=== PATIENT | female | born 1965 | race Caucasian/White ===

== ENCOUNTER 2018-05-09 16:08 | Outpatient (CLI) | payer BC, SELFPAY ==
--- NOTE | 2018-05-09 15:35 | DI.RAD_ITS ---
SYMPTOMS/DIAGNOSIS: LEFT FINGER PAIN, M79.645 LEFT INDEX FINGER: There is no evidence of fracture, dislocation or bony erosions. There are no significant degenerative changes. No soft tissue calcifications are seen. IMPRESSION: Negative left index finger.
== END 2018-05-09 16:28 ==
PROVIDERS: PCP Family Medicine; Visit Provider Family Medicine
DX: M79.645 Pain in left finger(s) (principal)
CPT/HCPCS: 73140

== ENCOUNTER 2018-07-17 18:08 | Outpatient (REF) | payer BC, SELFPAY ==
[2018-07-17 19:22] LABS: HCT 37.4 % (36.0-46.0); HGB 12.6 g/dL (12.0-15.5); Mean Corp. HGB Concentration 33.7 g/dL (32.0-36.0); Mean Corpuscular Hemoglobin 31.7 pg (27.0-33.0); Mean Platelet Volume 9.7 fL (8.0-11.0); Platelet Count 380 x1000/uL (130-400); RBC 3.98 m/cumm (4.00-5.20); RBC Distribution Width 11.5 % (11.7-14.6); White Blood Cell Count 6.17 k/cumm (4.4-10.8)
[2018-07-17 20:58] LABS: Mono Screening Negative (Negative)
== END 2018-07-17 18:28 ==
LOC: NCHCN 18:08
PROVIDERS: PCP Family Medicine; Visit Provider Family Medicine
DX: J02.9 Acute pharyngitis, unspecified (principal)
CPT/HCPCS: 85027; 86308

== ENCOUNTER 2018-10-18 16:15 | Outpatient (REF) | payer BC, SELFPAY ==
--- NOTE | 2018-10-18 13:50 | PAPFT_PTH ---
PATIENT: Cindi Brandon LOC: [facility] U#:[id number] AGE/SX: 53/F ROOM: RE10/18/[address]: MONIQUE Xie : 1965 BED: DIS: 10/18/2018 SPEC #: [id number] RECD: 10/18/18 18:00 STATUS: MAHI MUNOZ #: [id number] FABIOLA: 10/18/18 13:[address]: Jacklyn Masters [facility] Cytology RECD BY: Mary Jimenez ENTERED: 10/18/18 18:00 SP TYPE: PAPFT ANEUDY DR: Jordyn Mosquera Tissues: 1 - CX/ENDOCX FOR PAP SMEARS Procedures: PAP THIN PREP/UVM Screening HPV DNA PROBE Comments: [id number]
== END 2018-10-18 16:35 ==
LOC: LBN 16:15
PROVIDERS: Visit Provider Nurse Practitioner Family
DX: Z12.4 Encounter for screening for malignant neoplasm of cervix (principal); Z11.51 Encounter for screening for human papillomavirus (HPV)
CPT/HCPCS: 88142; 87624

== ENCOUNTER 2019-12-30 01:54 | Outpatient (CLI) | payer BC, SELFPAY ==
--- NOTE | 2019-12-30 12:00 | DI.MAMMO_ITS ---
EXAM: MAMMO SCREENING CLINICAL HISTORY: screening TECHNIQUE: Mammograms were interpreted according to the usual protocol including computer analysis w Dekko CAD system, tomosynthesis and C-view imaging. COMPARISON: 2011 and 2013 FINDINGS: The breasts are composed of heterogeneously dense fibroglandular densities, Breast Density category C . No suspicious masses or suspicious microcalcifications are seen. Benign calcifications are again not ed in the lateral left breast. No skin thickening or abnormal axillary lymph nodes are seen. There has been no significant change from prior exams. IMPRESSION: BI-RADS Category 2 - Benign Findings Yearly screening mammography is recommended. Breast Density - Category C, heterogeneously dense tissue which decreases the sensitivity of the mamm ogram. The mammogram demonstrates the patient's breast tissue is dense. Dense breast tissue is very common a nd is not abnormal but dense breast tissue can make it harder to find cancer on a mammogram. Also, de nse breast tissue may increase breast cancer risk. This information about the result of the mammogram report was provided to the patient to raise their awareness. Use this report when you speak with the patient about their risks for breast cancer, which includes their family history. At that time, you may recommend additional screening tests (Ultrasound or MRI) as they might be useful based on their r isk. A negative radiographic report should not delay biopsy if a dominant or clinically suspicious mass is present. Up to ten percent of cancers are not identified on mammography. A negative report may reinforce clinical impression. Adenosis and dense breasts may obscure an underlying neoplasm. False positive reports average 6 to 10%.
== END 2019-12-30 02:14 ==
PROVIDERS: PCP Family Medicine; Visit Provider Nurse Practitioner Family
DX: Z12.31 Encounter for screening mammogram for malignant neoplasm of breast (principal); R92.2 Inconclusive mammogram
CPT/HCPCS: 77063; 77067

== ENCOUNTER 2021-12-31 18:29 | Outpatient (REF) | payer MEDICAID, SELFPAY ==
[2022-01-02 11:33] LABS: COVID-19 RT-PCR UVMMC Result Negative (Negative)
== END 2021-12-31 18:30 | disposition home or self-care (01) ==
LOC: LBN 18:29
PROVIDERS: PCP Family Medicine; Visit Provider Physician Assistant Medical
DX: Z20.822 Contact with and (suspected) exposure to COVID-19 (principal)
CPT/HCPCS: U0003

== ENCOUNTER 2022-01-19 11:48 | Outpatient (REF) | payer MEDICAID, SELFPAY ==
--- NOTE | 2022-01-19 11:15 | PAPFT_PTH ---
PATIENT: Cindi Brandon LOC: [facility] U#:[id number] AGE/SX: 56/F ROOM: RE01/19/[address]: Arianna Montes De Oca NP : 1965 BED: DIS: 01/19/2022 SPEC #: [id number] RECD: 01/19/22 13:14 STATUS: MAHI RESamantha #: [id number] FABIOLA: 01/19/22 11:[address]: Arianna Montes De Oca NP DEPT: [facility] Cytology RECD BY: Mary Jimenez ENTERED: 01/19/22 13:14 SP TYPE: PAPFT OTHR DR: Getachew Martínez Tissues: 1 - CX/ENDOCX FOR PAP SMEARS Procedures: PAP THIN PREP/UVM Screening HPV DNA PROBE Comments: [id number] (CHLAMYDIA/GC)
[2022-01-20 14:05] LABS: Chlamydia Result Negative (Negative); GC Result Negative (Negative)
== END 2022-01-19 11:49 | disposition home or self-care (01) ==
LOC: LBN 11:48
PROVIDERS: PCP Family Medicine; Visit Provider Nurse Practitioner Women's Health
DX: Z12.4 Encounter for screening for malignant neoplasm of cervix (principal); Z11.51 Encounter for screening for human papillomavirus (HPV); Z11.3 Encounter for screening for infections with a predominantly sexual mode of transmission
CPT/HCPCS: 87491; 87591; 88142; 87624

== ENCOUNTER → 2022-02-23 01:23 | Outpatient (CLI) | payer MEDICAID, SELFPAY ==
--- NOTE | 2022-02-23 16:00 | DI.MAMMO_ITS ---
Exam(s) MAMMO SCREENING EXAM: MAMMO SCREENING CLINICAL HISTORY: screening TECHNIQUE: Bilateral full field digital CC and MLO mammographic images were obtained with 3D tomosyn thesis and utilizing computer aided detection (CAD). COMPARISON: Available for comparison. FINDINGS: Masses/Architectural Distortion: None seen. Microcalcifications: No suspicious pleomorphic-type are seen. Skin Thickening/Nipple Retraction: None. IMPRESSION: 1. No significant interval change with no specific features of malignancy noted. 2. Unless there is more urgent need, screening mammography is recommended, as per [employer] guidelines. BI-RADS Category 1 - Negative Breast Density - Category C - Heterogeneously dense Breast density category C or D implies that the patient has dense breast tissue. Dense breast tissue is very common and is not abnormal but dense breast tissue can make it harder to find cancer on a ma mmogram. Also, dense breast tissue may increase their breast cancer risk. This information about the result of the mammogram report was provided to the patient to raise their awareness. Use this report when you speak with the patient about their risks for breast cancer, which includes their family hist ory. At that time, you may recommend for more screening tests (Ultrasound or MRI) as they might be us eful based on their risk. A negative radiographic report should not delay biopsy if a dominant or clinically suspicious mass is present. Up to ten percent of cancers are not identified on mammography. A negative report may reinforce clinical impression. Adenosis and dense breasts may obscure an underlying neoplasm. False positive reports average 6 to 10%. Patient will receive a letter notifying them of these results.
== END ==
PROVIDERS: PCP Family Medicine; Visit Provider Nurse Practitioner Women's Health
DX: Z12.31 Encounter for screening mammogram for malignant neoplasm of breast (principal)
CPT/HCPCS: 77063; 77067

== ENCOUNTER 2022-03-30 12:21 | Outpatient (REF) | payer MEDICAID, SELFPAY ==
[2022-03-30 19:17] LABS: Abs Immature Grans 0.01 10^3/uL (0.0-0.06); Absolute Basophil Count 0.03 10^3/uL (0.0-0.2); Absolute Eosinophil Count 0.21 10^3/uL (0.0-0.7); Absolute Lymphocyte Count 1.58 10^3/uL (1.2-3.4); Absolute Monocyte Count 0.61 10^3/uL (0.1-0.8); Absolute Neutrophil Count 3.58 10^3/uL (1.2-6.7); Basophils % 0.5; Eosinophils % 3.5; HCT 41.5 % (36.0-46.0); HGB 13.9 g/dL (11.2-15.7); Immature Grans % 0.2; Lymphocytes % 26.2; MCH 31.7 pg (27.0-33.0); MCHC 33.5 % (32.0-36.0); MCV 95 fL (80-95); MPV 9.8 fL (8.0-11.0); Monocytes % 10.1; Neutrophils % 59.5; Platelet Count 327 10^3/uL (130-400); RBC 4.39 10^6/uL (3.93-5.22); RDW-SD 42.1 fL; WBC 6.02 10^3/uL (4.4-10.8)
[2022-03-30 19:26] LABS: ALT 35 U/L (14-59); AST 32 U/L (15-37); Albumin 4.1 g/dL (3.4-5.0); Alkaline Phosphatase 66 U/L (46-116); Anion Gap 5.9 mmol/L (3-11); BUN 14 mg/dL (7-18); Bilirubin, Total 0.5 mg/dL (0.2-1.0); CO2 30.1 mmol/L (21.0-32.0); CREATININE 0.7 mg/dL (0.55-1.02); Calcium 9.4 mg/dL (8.5-10.1); Calculated LDL 105 mg/dL (<100); Chloride 104 mmol/L (98-107); Cholesterol 245 mg/dL (<200); Estimated GFR 101.44 (mL/min/1.73m2); Glucose 103 mg/dL (74-106); HDL Cholesterol 121 mg/dL (40-60); Potassium 4.6 mmol/L (3.5-5.1); Sodium 140 mmol/L (136-145); Total Protein 7.5 g/dL (6.4-8.2); Triglyceride 96 mg/dL (<150)
== END 2022-03-30 12:22 | disposition home or self-care (01) ==
LOC: NCHCN 12:21
PROVIDERS: PCP Family Medicine; Visit Provider Nurse Practitioner Family
DX: R53.83 Other fatigue (principal); R63.4 Abnormal weight loss; E78.89 Other lipoprotein metabolism disorders
CPT/HCPCS: 80053; 80061; 85025

== ENCOUNTER 2022-03-31 01:18 | Outpatient (CLI) | payer MEDICAID, SELFPAY ==
--- NOTE | 2022-03-31 13:40 | DI.RAD_ITS ---
Exam(s) XR THUMB LT EXAM: XR THUMB LT . CLINICAL HISTORY: LT THUMB PAIN, M79.645. TECHNIQUE: 2D digital imaging was performed. COMPARISON: CR RIGHT HAND COMPLETE from 10/02/2008 FINDINGS: 4 views There isno evidence of fracture or dislocation. No radiopaque foreign body. No osseous lesions nor er osions. First carpometacarpal joint is unremarkable Incidentally noted are small sub millimeter calcific densities in both sides of the DIP joint of the 3rd-middle finger. IMPRESSION: DATA REPOSITORY: RADIATION DOSE DELIVERED:
== END 2022-03-31 01:38 ==
LOC: DI 01:18
PROVIDERS: PCP Family Medicine; Visit Provider Nurse Practitioner Family
DX: M79.645 Pain in left finger(s) (principal)
CPT/HCPCS: 73140

== ENCOUNTER 2022-05-09 01:13 | Outpatient (CLI) | payer MEDICAID, SELFPAY ==
--- NOTE | 2022-05-09 17:50 | DI.DEXA_ITS ---
Exam(s) XR DEXA BONE DENSITY W/WO ADENIKE EXAM: XR DEXA BONE DENSITY W/WO ADENIKE CLINICAL HISTORY: SCREENING FOR OSTEOPOROSIS IN POSTMENOPAUSAL WOMAN,Z78.0 TECHNIQUE: Routine DEXA evaluation of the lumbar spine, hip, or forearm. COMPARISON: Prior DEXA scan performed 2013 FINDINGS: Performed on a [employer] unit. Lumbar Spine total T-score: Not performed due to prior surgery Hip total T-score:-1.2. Prior reading in 2014 was -0.3 Independent reading at the level of the femoral neck yields T-score of -1.3 Forearm total T-score: -0.1 IMPRESSION: Bone mineral density measures in the osteopenia range. Fracture risk is moderate. Note: Any spine fracture indicates 5x risk for subsequent spine fracture and 2x risk for subsequent h ip fracture. World Health Organization criteria for BMD interpretation classify patients: Normal...... T- Score at or above -1.0 Osteopenic... T- Score between -1.0 and -2.5 Osteoporosis... T-Score at or below -2.5
== END 2022-05-09 01:33 ==
LOC: DI 01:14
PROVIDERS: PCP Family Medicine; Visit Provider Nurse Practitioner Family
DX: Z13.820 Encounter for screening for osteoporosis (principal); Z78.0 Asymptomatic menopausal state; M85.88 Other specified disorders of bone density and structure, other site
CPT/HCPCS: 77080

== ENCOUNTER 2022-09-29 12:11 | Outpatient (REF) | payer MEDICAID, SELFPAY ==
[2022-09-29 15:15] LABS: Abs Immature Grans 0.01 10^3/uL (0.0-0.06); Absolute Basophil Count 0.04 10^3/uL (0.0-0.2); Absolute Eosinophil Count 0.12 10^3/uL (0.0-0.7); Absolute Lymphocyte Count 1.72 10^3/uL (1.2-3.4); Absolute Monocyte Count 0.62 10^3/uL (0.1-0.8); Absolute Neutrophil Count 2.97 10^3/uL (1.2-6.7); Basophils % 0.7; Eosinophils % 2.2; HCT 40.5 % (36.0-46.0); HGB 13.7 g/dL (11.2-15.7); Immature Grans % 0.2; Lymphocytes % 31.4; MCH 31.6 pg (27.0-33.0); MCHC 33.8 % (32.0-36.0); MCV 93 fL (80-95); MPV 9.4 fL (8.0-11.0); Monocytes % 11.3; Neutrophils % 54.2; Platelet Count 321 10^3/uL (130-400); RBC 4.34 10^6/uL (3.93-5.22); RDW 11.8 % (11.7-14.6); RDW-SD 40.4 fL; WBC 5.48 10^3/uL (4.4-10.8)
[2022-09-29 15:17] LABS: Bilirubin Negative (Negative); Blood Moderate (Negative); Clarity Clear (Clear); Glucose Negative (Negative); Ketones Negative (Negative); Leukocyte Esterase Negative (Negative); Nitrite Negative (Negative); Urobilinogen 0.2 mg/dL (Up to 0.2); pH 6.5 (5-8)
[2022-09-29 15:26] LABS: Bacteria Negative HPF (Negative); C & S Indicated? No; Casts Negative LPF (Negative); Crystals Negative HPF (Negative); Epithelial Cells Few HPF (Negative); Mucus Negative (Negative); WBC 0-2 HPF (0-5)
[2022-09-29 15:40] LABS: ALT 97 U/L (14-59); AST 70 U/L (15-37); Albumin 4.2 g/dL (3.4-5.0); Alkaline Phosphatase 70 U/L (46-116); Anion Gap 9.6 mmol/L (3-11); BUN 20 mg/dL (7-18); Bilirubin, Total 0.7 mg/dL (0.2-1.0); CO2 28.4 mmol/L (21.0-32.0); CREATININE 0.8 mg/dL (0.55-1.02); Calcium 9.4 mg/dL (8.5-10.1); Chloride 101 mmol/L (98-107); Estimated GFR 85.89 (mL/min/1.73m2); FREE T4 0.82 ng/dL (0.76-1.46); Glucose 99 mg/dL (74-106); Potassium 4.1 mmol/L (3.5-5.1); Sodium 139 mmol/L (136-145); TSH 0.95 uIU/mL (0.36-3.74); Total Protein 7.5 g/dL (6.4-8.2)
[2022-09-29 22:50] LABS: T3, Total 122 ng/dL (97-169)
== END 2022-09-29 12:12 | disposition home or self-care (01) ==
LOC: NCHCN 12:11
PROVIDERS: PCP Family Medicine; Visit Provider Nurse Practitioner Family
DX: R63.4 Abnormal weight loss (principal)
CPT/HCPCS: 80053; 81003; 81015; 84439; 84443; 84480; 85025

== ENCOUNTER 2022-09-30 00:17 | Outpatient (CLI) | payer MEDICAID, SELFPAY ==
--- NOTE | 2022-09-30 | DI.US_ITS ---
Exam(s) US ABDOMEN LIMITED EXAM: US ABDOMEN LIMITED CLINICAL HISTORY: RUQ PAIN, R10.11, RECENT WT LOSS, R63.4 TECHNIQUE: Ultrasound abdomen performed using standard protocol. COMPARISON: US RENAL ULTRASOUND(P) from 07/09/2013 FINDINGS: LIVER: Normal size and echogenicity. No focal liver lesions are seen.. GALLBLADDER: No evidence of cholelithiasis. No evidence of wall thickening. No pericholecystic fluid identified. SANCHEZ'S SIGN: Negative. BILIARY SYSTEM: No intrahepatic biliary ductal dilation. The distal common bile duct appears dilated to 8 millimeters. No common duct stone visible. Right KIDNEY: Normal size. No evidence of renal calculi. No evidence of hydronephrosis. No renal mas s or cyst identified. PANCREAS: Not well visualized due to overlying bowel gas. ABDOMINAL AORTA AND IVC: Visualized portions normal caliber. ASCITES: None seen. IMPRESSION: Mild distal dilatation of the common bile duct without visible stone. No evidence of gallstones or g allbladder wall thickening. DATA REPOSITORY:
== END 2022-09-30 00:37 ==
PROVIDERS: PCP Family Medicine; Visit Provider Nurse Practitioner Family
DX: R93.2 Abnormal findings on diagnostic imaging of liver and biliary tract (principal); R10.9 Unspecified abdominal pain
CPT/HCPCS: 76705

== ENCOUNTER → 2023-06-22 11:41 | Outpatient (CLI) | payer MEDICAID, SELFPAY ==
--- NOTE | 2023-06-22 14:24 | DI.RAD_ITS ---
Exam(s) XR SACRUM COCCYX EXAM: XR SACRUM COCCYX CLINICAL HISTORY: PAIN IN COCCYX,SACROCOCCYGEAL DISORDER, M53.3,H/O TRAUMA. TECHNIQUE: 2D digital imaging was performed. COMPARISON: CR XR DEXA BONE DENSITY W/WO ADENIKE from 05/09/2022 FINDINGS: BONES: No acute fracture is present. No bony destructive lesion is seen. Rods are noted in the lowe r lumbar spine and upper sacrum. JOINTS: SI joints and pubic symphysis are unremarkable. The visualized portions of the hip joints ar e maintained. SOFT TISSUE: Normal. IMPRESSION: No acute abnormality. DATA REPOSITORY: RADIATION DOSE DELIVERED:
== END ==
PROVIDERS: PCP Family Medicine; Visit Provider Family Medicine
DX: M53.3 Sacrococcygeal disorders, not elsewhere classified (principal)
CPT/HCPCS: 72220

== ENCOUNTER → 2023-08-04 02:39 | Outpatient (CLI) | payer MEDICAID, SELFPAY ==
--- NOTE | 2023-08-04 15:00 | DI.RAD_ITS ---
Exam(s) XR SCOLIOSIS T-L SPINE EXAM: XR SCOLIOSIS T-L SPINE CLINICAL HISTORY: SCOLIOSIS. TECHNIQUE: 2D digital imaging was performed. COMPARISON: CR XR SACRUM COCCYX from 06/22/2023 FINDINGS: Seven views. There is a long Caban girma extending from posterior T2 level down to L3 level. Coming off of this broad are 2 accessory loops of rods which extend from T11 on the right side and T1 2 on the left side down into the pelvis where there are secured by posterior intrapedicular screws in the lumbar vertebrae as well as oblique screws in the sacrum and across the SI joints. It is noted that there is a discontinuity-fracture of 1 of the 2 left-sided rods at the L5 level. With respect to the scoliosis, it is convex right throughout its length. The Michael angle today is mary ured off of the inferior endplate of T2 and superior endplate of L3. This describes an angle of appro ximately 49 degrees. A Michael angle measurement using the superior endplate of T3 and inferior endplate of L1 describes an a ngle approximately 44 degrees IMPRESSION: Michael angle measurements as above for the thoracolumbar scoliosis which is convex right. There is a fracture line through the lower aspect of the more medial of the 2 rods at the L5 level. DATA REPOSITORY: RADIATION DOSE DELIVERED: It is convex right throughout its length. The Michael angle
== END ==
PROVIDERS: PCP Family Medicine; Visit Provider Orthopaedic Surgery Orthopaedic Surgery of the Spine
DX: M51.35 Other intervertebral disc degeneration, thoracolumbar region (principal)
CPT/HCPCS: 72082

== ENCOUNTER 2024-04-30 14:06 | Outpatient (REF) | payer MEDICAID, SELFPAY ==
--- OUTSIDE RECORDS SUMMARY | 2024-04-30 14:17 | XMS_ITS | Encounter Summary ---
Author Organization [facility] Address [address] [place] [id number] Care Team Providers Care Repairer [employer] Equipment Name Role Phone Unknown, Provider Primary Care Provider Unava ilable Encounter Details Date Type Department Care Team (Late st Contact Info) Description 09/29/2022 Lab Requisition [facility] Pathology & Laboratory Medicine - [address] [id number] Outr Resulting Lab, Provider Social History Tobacco Use Types Packs/Day Years Used Date Smoking Tobacco: Never Assessed Comments Unknown Sex and Gender Information Value Date Recorded Sex Assigned at Not on file Legal Sex Female 17:57 EST Gender Identity Not on file Sexual Orientation Not on file documented as of this encounter Plan of Treatment Not on file documented as of this encounter Procedures Procedure Name Priority Date/Time Associated Diagnosis Comments T3, TOTAL Routine 09/29/2022 11:50 EDT documented in this encounter Results * T3, TOTAL (09/29/2022 11:50 EDT) T3, Total 122 97 - 169 ng/dL 09/29/2022 22:45 EDT [facility] Blood VENOUS BLOOD / Unknown 09/29/2022 11:50 EDT 09/29/2022 21:47 EDT us Provider Outr Resulting Lab CHEMISTRY & BLOOD GA S ORDERABLES Final Result [facility] [address] [place] [address] documented in this encounter Visit Diagnoses Not on filedocumented in this encounter Care Teams Repairer [employer]ding Systems [employer] Equipment Relationship Specialty Start Date End Date Unknown, Provider, PCP - General 07/20/12 documented as of this encounter
--- OUTSIDE RECORDS SUMMARY | 2024-04-30 14:17 | XMS_ITS | Clinical Summary ---
Author Organization [facility] [address] Care Team Providers Care Hospital Staff Pharmacist Name Role Phone None Primary Care Provider Unavailabl e Allergies No known active allergies Medications Medication Sig Dispensed Refills Start Date End Date Status ETONOGESTREL/ETHINYL ESTRADIOL (NUVARING VAGL) 09/09/2008 Active NAPROXEN SODIUM (ALEVE ORAL) 09/09/2008 Active CALCIUM ORAL 09/09/2008 Active LYCOPENE/LUT XT/FRUIT EXTRACTS (FRUIT & VEGETABLE DAILY ORAL) 09/09/2008 Active multivitamin with minerals (JENNIFER MULTIPLE/CHELATED MINERAL) tablet 09/09/2008 Active Social History Tobacco Use Types Packs/Day Years Used Date Smoking Tobacco: Never Assessed Sex and Gender Information Value Date Recorded Sex Assigned at Not on file Gender Identity Not on file Sexual Orientation Not on file Plan of Treatment Health Maintenance Due Date Last Done Comments CT Colonography 1965 Colonoscopy 1965 Colorectal Cancer Screening 1965 FIT DNA 1965 FIT 1965 Sigmoidoscopy (10 year) with FIT yearly 1965 Sigmoidoscopy 1965 HIV screen 1983 Hepatitis C Screening 1983 Hepatitis B vaccine (0-59 yrs) (1) 1984 Tetanus/Diphtheria/Pertussis Vaccines (1 - Tdap) 05/12 HPV test 1995 PAP Smear 1995 Breast Cancer Share Decision Needed 2005 Breast Cancer screening 2005 Pneumoccocal Vaccine: 50+ (1 of 1 - PCV) 2015 Zoster vaccine (1 of 2) 2015 Advance Directive 2020 Covid-19 Vaccine (1 - 2023-25 season) 2023 Influenza (Flu) vaccine (1 o f 1 - Influenza standard series) 12/03/2023 Care Teams Hospital Staff Pharmacist Relationship Specialty Start Date End Date None None PCP - General 02/23/10
--- OUTSIDE RECORDS SUMMARY | 2024-04-30 14:17 | XMS_ITS | Referral Summary ---
Author Organization [facility] Address [address] [place] [address] Care Team Providers Care Oreman Name Role Phone Unknown, Provider Primary Care Provider Unava ilable Social History Tobacco Use Types Packs/Day Years Used Date Smoking Tobacco: Never Assessed Comments Unknown Sex and Gender Information Value Date Recorded Sex Assigned at Not on file Legal Sex Female 17:57 EST Gender Identity Not on file Sexual Orientation Not on file Plan of Treatment Not on file Care Teams [place] Relationship Specialty Start Date End Date Unknown, ProviderMD PCP - General 07/20/12
--- OUTSIDE RECORDS SUMMARY | 2024-04-30 14:17 | XMS_ITS | Patient Health Record ---
Author Organization [facility] Address [address] [place] [address] Care Team Providers Care Semiconductor Packages Leak Tester Name Role Phone OTHER PHYSICIANS, OTH Primary Care Provider Shanta Isrrael Waterman Unavailable [phone] REASON FOR REFERRAL No Information MEDICATIONS Medication SIG (Take, Route, Frequency, Duration) Notes Start Date End Date Status Multivitamin - 1 tablet Orally Once a day for 30 day(s) Active Calcium Magnesium 750 300-300 MG 1 tablet with meals Orally Three times a day for 30 day(s) Active Acetaminophen 325 MG 1 capsule as needed Orally every 6 hrs Not-Taking Omeprazole 20 MG 1 capsule 30 minutes before morning meal Orally Once a day for 30 day(s) Not-Taking SOCIAL HISTORY Tobacco Use: Social History Observation Description Date Details (start date - stop date) Never Smoker NA - NA Sex Assigned At : Social History Observation Description Sex Assigned At Unknown SMOKING Question Answer Notes Are you a: nonsmoker PROBLEMS Problem Type ICD Code Onset Dates Problem Status W/U Status Risk SNOMED Code Notes Problem Hyperkeratosis (L85.9) Active confirmed Hyperkeratosis (71031182) Problem GERD (gastroesophageal reflux disease) (K21.9) Active confirmed Gastroesophagea l reflux disease (736841044) Problem Knee pain, right (M25.561) Active confirmed Problem Finger pain, left (M79.645) Active confirmed Pain in limb (04587057) Problem Other form of scoliosis of thoracolumbar spine (M41.85) Active confirmed PLAN OF TREATMENT No Information Insurance Providers Payer Name Payer Address Payer Phone Subscriber Number Group Number Insured Name Patient Relationship to Insured Coverage Start Date Coverage End Date [employer] [address] [place] [address] [id number] BJ XAVIER Spouse - patient is the spouse of the insured [place] [address] [id number] DANIEL XAVIER Self - [place] [address] DANIEL XAVIER Self - patient is the insured MEDICAL (GENERAL) HISTORY Medical History History ICD Code Knee pain, right M25.561 Finger pain, left M79.645 Other form of scoliosis of thoracolumbar spine M41.85 GERD (gastroesophageal reflux disease) K 21.9 Surgical History Surgery Date(Month/Year) spinal fusion 2015 Hospitalization History Reason Date(Month/Year) see above
--- OUTSIDE RECORDS SUMMARY | 2024-04-30 14:17 | XMS_ITS | Encounter Summary ---
Author Organization [facility] Address [address] [facility] [place] [address] Care Team Providers Care Auto Camp Attendant Name Role Phone None Primary Care Provider Unavailabl e Encounter Details Date Type Department Care Team (Latest Contact Info) Description 10/14/2013 1:48 PM EDT - 10/14/2013 11:59 PM EDT Hospital Encounter XRay at [address] [facility] [place] [phone] CLINIC, Getachew Boyd MD Discharge Disposition: Home Social History Tobacco Use Types Packs/Day Years Used Date Smoking Tobacco: Never Assessed Sex and Gender Information Value Date Recorded Sex Assigned at Not on file Gender Identity Not on file Sexual Orientation Not on file documented as of this encounter Medications at Time of Discharge Medication Sig Dispensed Refills Start Date End Date ETONOGESTREL/ETHINYL ESTRADIOL (NUVARING VAGL) 09/09/2008 NAPROXEN SODIUM (ALEVE ORAL) 09/09/2008 CALCIUM ORAL 09/09/2008 LYCOPENE/LUT XT/FRUIT EXTRACTS (FRUIT & VEGETABLE DAILY ORAL) 09/09/2008 multivitamin with minerals (JENNIFER MULTIPLE/CHELATED MINERAL) tablet 009 documented as of this encounter Plan of Treatment Not on file documented as of this encounter Procedures Procedure Name Priority Date/Time Associated Diagnosis Comments XR SCOLIOSIS OR TOTAL SPINE 2 VIEW Routine 10/14/2013 2:03 PM EDT documented in this encounter Results * XR scoliosis 2 view (10/14/2013 2:03 PM EDT) Anatomical Region Laterality Modality C-spine, T-spine, L-spine N/A Radiog raphic Imaging 10/14/2013 2:03 PM EDT Narrative 10/14/2013 2:12 PM EDT Examination SCOLIOSIS 2 VIEW Clinical History SCOLIOSIS Comparison None Technique PA and lateral scoliosis views Findings The patient is status post instrumented posterior spinal fusion with a single grima and proximal and distal laminar hooks and distal wires. There is a dextro convex curve measured from superior endplate of T3 to the superior endplate of L3, at 42 degrees. There is a mild acute kyphosis at L1 - L2 and rightward subluxation of L3 upon L4. Correlation with prior imaging would be helpful. Procedure Note Andrew Fernández MD - 10/14/2013 Examination SCOLIOSIS 2 VIEW Clinical History SCOLIOSIS Comparison None Technique PA and lateral scoliosis views Findings The patient is status post instrumented posterior spinal fusion with asingle girma and proximal and distal laminar hooks and distal wires. There is adextro convex curve measured from superior endplate of T3 to the superiorendplate of L3, at 42 degrees. There is a mild acute kyphosis at L1 - L2 and rightward subluxation of L3 upon L4. Correlation with prior imaging would behelpful. Getachew Sanchez MD IMG DX ORDERABLES documented in this encounter Visit Diagnoses Not on filedocumented in this encounter Care Teams Auto Camp Attendant Relationship Specialty Start Date End Date None None PCP - General 02/23/10 documented as of this encounter
--- OUTSIDE RECORDS SUMMARY | 2024-04-30 14:17 | XMS_ITS | Data Portability ---
Author Organization [place] - [facility] [place] [address] Care Team Providers Care Roof Slater Name Role Phone KENYTETA PARSON Dentist Assessment No assessment recorded. Plan of Treatment Reminders Order Date Submit Date Provider Last Modified By Organization Details Last Modified Time Details Appointments Annual Wellness Exam 40 2024 11:00A Paramjit VALDEZ Not available Not available Not available Follow Up 30 2024 02:00P Paramjit VALDEZ Not available Not available Not available Lab None recorded. Referral physical therapist referral - L shoulder/ upper arm pain X 5 months, no loss of strength, but pain with lifting 2022 023 [facility] ([facility]), [address], [place], [address], 04/10/2023 14:39:00 pain managemen t referral - 58 yo F with severe scoliosis s/p thoracic and lumbar fusions (remote), fell on [facility] in February, was gradually improving but now worsening . Injection s? 2023 024 [facility], [address] , [place], [address], 12/18/2023 10:08:51 Procedures colonosco py screening (PROC) - Due for screening colonosco py 2023 024 rbarter [facility], [address] , [address], [place], [address], 06/22/2023 09:11:57 colonosco py screening (PROC) 2023 024 [email or web address] [facility], [address], [place], [address], 10/11/2023 09:58:33 Surgeries None recorded. Imaging XR, sacrum + coccyx - 4 months of coccyx pain after trauma 2023 024 [facility], [address], [place], [address], 07/06/2023 07:46:24 Medication Orders None recorded. Patient TargetsNo targets recorded. Patient Instructions Encounter Date Encounter Id Patient Instructions Last Modified By Organization Details Last Modified Time 04/26/2023 [id number] Nice to see you today! i'll order your colonoscopy and they will call you to schedule mammogram next year [id number] Not available 04/26/2023 12:27:13 06/22/2023 [id number] sacroiliac pain: exercises Not available 06/22/2023 09:43:42 try diclofenac gel I am placing a referral for an x-ray and pain management Not available 06/22/2023 09:39:16 Reason for Referral Physical Therapist Referral for Shoulder pain L shoulder/upper arm pain X 5 months, no loss of strength, but pain with lifting Referring Physician: Alton Escoto, Family Medicine, Encounter Date: 03/21/2023 Pain Management Referral for Pain in coccyx 58 yo F with severe scoliosis s/p thoracic and lumbar fusions (remote), fell on [facility] in February, was gradually improving but now worsening. Injections? Referring Physician: Bj Martínez, Family Medicine, Encounter Date: 06/22/2023 Leno Sewer Referral for Foot callus right 5th toe, painful callus, affecting nail, would like intervention /shave down Referring Physician: Sunita Valdez, Family Medicine, Encounter Date: 04/30/2024 Results Created Date Observation Date Name Description Value Unit Range Abnormal Flag Note LastModifiedBy Organization Detail LastModifiedTime 06/22/1906/22/2023 XR, sacru m + coccy x Patien t Name: Phan Hudson Unit #: [id number] Loc: DI Orderi ng Provid er: Bj Martínez t #: [id number] Status : REG CLI Primar y Care Provid er: Mauricio Bj Date of Exam: Sex: F Admiss ion Date: : 1965 Age: 58 Exam(s ) XR SACRUM COCCYX EXAM: XR SACRUM COCCYX CLINIC AL HISTOR Y: PAIN IN COCCYX ,SACRO COCCYG EAL DISORD ER, M53.3, H/O TRAUMA . TECHNI QUE: 2D digita l imagin g was perfor med. COMPAR ROSE MARY: CR XR DEXA BONE DENSIT Y W/WO ADENIKE from 2022 FINDIN GS: BONES: No acute fractu re is presen t. No bony destru ctive lesion is seen. Rods are noted in the lower lumbar spine and upper sacrum . JOINTS : SI joints and pubic symphy sis are unrema rkable . The visual ized portio ns of the hip joints are mainta ined. SOFT TISSUE : Normal . IMPRES ANABELLE: No acute abnorm ality. DATA REPOSI TORY: RADIAT ION DOSE DELIVE RED: Ordere d By: Bj Martínez CC: ------ ------ ------ ------ ------ ------ ------ ------ ------ ------ ------ ------ - Dictat ed By: Michelle Zamroa 1450 1450 Transc ribed By: Henrique Randle 1450 This is privil eged, confid ential inform ation intend ed only for the provid er named. Any use or distri bution by any person other than this provid er is strict ly prohib ited. If you receiv e this report in error, please notify us immedi jdly at [phone] and return the origin al report to us at the addres s above. Thank- you. [email or web address] [address] [place], [address] 07/07/2023 08:08:27 08/04/19 24 08/04/2023 XR, spine , scoli osis sermichelle gillespie Name: Phan Hudson Unit #: [id number] Loc: DI Orderi ng Provid er: Judie GUERRA M.D. Accoun t #: [id number] Status : REG CLI Primar y Care Provid er: Bj Martínez Date of Exam: Sex: F Admiss ion Date: : 1965 Age: 58 Exam(s ) XR SCOLIO SIS T-L SPINE EXAM: XR SCOLIO SIS T-L SPINE CLINIC AL HISTOR Y: SCOLIO SIS. TECHNI QUE: 2D digita l imagin g was perfor med. COMPAR ROSE MARY: CR XR SACRUM COCCYX from 2023 FINDIN GS: Seven views. There is a long [place] gton girma extend ing from epidemiology internship ior T2 level down to L3 level. Coming off of this broad are 2 access ory loops of rods which extend from T11 on the right side and T12 on the left side down into the pelvis where there are secure d by epidemiology internship ior intrap edicul ar screws in the lumbar verteb cathie as well as obliqu e screws in the sacrum and across the SI joints . It is noted that there is a discon tinuit y-frac ture of 1 of the 2 left-s ided rods at the L5 level. With respec t to the scolio sis, it is convex right throug hout its length . The Michael angle today is measur ed off of the inferi or endpla te of T2 and superi or endpla te of L3. This descri bes an angle of approx imatel y 49 degree s. A Michael angle measur ement using the superi or endpla te of T3 and inferi or endpla te of L1 descri bes an angle approx imatel y 44 degree s IMPRES ANABELLE: Michael angle measur ements as above for the thorac olumba r scolio sis which is convex right. There is a fractu re line throug h the lower aspect of the more medial of the 2 rods at the L5 level. DATA REPOSI TORY: RADIAT ION DOSE DELIVE RED: It is convex right throug hout its length . The Michael angle Ordere d By: Judie GUERRA M.D. CC: ------ ------ ------ ------ ------ ------ ------ ------ ------ ------ ------ ------ - Dictat ed By: Quinton Parrish M.D. 1736 Transc ribed By: Francois WARE,Arlene cruzito 1736 This is privil eged, confid ential inform ation intend ed only for the provid er named. Any use or distri bution by any person other than this provid er is strict ly prohib ited. If you receiv e this report in error, please notify us immedi ately at [phone] and return the origin al report to us at the addres s above. Thank- you. [email or web address] [address], [place], [address] 08/08/2023 12:19:49 12/18/19 24 05/10/2022 bone densi ty No observ ation record ed. Not Available 12/17 04:32:55 12/18/19 24 05/09/2022 bone densi ty No observ ation record ed. Not Available 12/17 04:32:56 12/18/19 24 02/23/2022 maryan JAVED No observ ation record ed. Not Available 12/17 04:32:57 12/18/19 24 12/30/2019 maryan JAVED No observ ation record ed. Not Available 12/17 04:33:00 12/18/19 24 09/30/2022 imagi ng/di agnos tic resul t No observ ation record ed. Not Available 12/17 04:33:03 12/18/19 24 03/31/2022 imagi ng/di agnos tic resul t No observ ation record ed. Not Available 12/17 04:33:31 12/18/19 24 05/09/2018 imagi ng/di agnos tic resul t No observ ation record ed. Not Available 12/17 04:33:32 12/18/19 24 05/09/2018 imagi ng/di agnos tic resul t No observ ation record ed. Not Available 12/17 04:33:33 12/18/19 24 03/31/2022 imagi ng/di agnos tic resul t No observ ation record ed. Not Available 12/17 04:33:36 Result Notes None recorded. Problems Name Problem SNOMED Code Status Onset Date Resolution Date Notes Provider Name and Address Organization Details Recorded Time Foot callus 894298591 Active 2024 MONIQUE JUNIOR [address], [place], [address] , [facility] 5 12:45:38 Scoliosi s of thoracic spine 603613494 Active 2014 Problem Code: M41.85; Problem Code Type: ICD-10; Not Available [facility] 3 05:10:22 Gastroes ophageal reflux disease without esophagi tis 714259774 Active 201407/25/19 19 - Comments only - Bj Martínez MD - Use omeprazo le while on steroids . Problem Code: K21.9; Problem Code Type: ICD-10; Not Available [facility] 3 05:10:22 Acute sinusiti s 75651620 Completed 201708/20/2017 Problem Code: J01.90; Problem Code Type: ICD-10; Not Available [facility] 3 05:10:22 Pain in finger of left hand 97305913458 9105 Active 201805/09/19 19 - Comments only - Amalia Brown MD - most consiste nt with osteoart hritis, but given possibil ity of injury, will check an x-ray. Problem Code: M79.645; Problem Code Type: ICD-10; Not Available [facility] 3 05:10:23 Acute bronchos pasm 63377863888 100 Completed 201809/22/2018 07/25/19 19 - Comments only - Bj Martínez MD - Deminis ed peak flow and response to albutero l suggest bronchos pasm. Does have remote smoking and passive exposure , likely restrict ion with bad scoliosi s. Given albutero l neb today, felt a lot better but not a signific ant response on peak flow Will treat with steroid burst and albutero l inhaler prn. consider PFTs on f/u. Problem Code: J98.01; Problem Code Type: ICD-10; Not Available [facility] 3 05:10:23 Acute sinusiti s 71216588 Completed 201808/23/2018 07/25/19 19 - Comments only - Bj Martínez MD - At this point with persiste nt symptoms over two weeks I am concerne d with bacteria l componen t of sinusiti s. Will add amox/cla v to conserva tive care. Problem Code: J01.90; Problem Code Type: ICD-10; Not Available [facility] 3 05:10:23 Pain of right knee joint 72287218036 4100 Active 201802/21/20 19 - Comments only - Cass Viera - Given negative Delmis test and no pain with varus or valgus stress, an ACL, LCL, or MCL tear, respecti vely, is unlikely . Patient may have a tear in her medial meniscus given the possible twisting nature of her injury and effusion on the medial aspect of the knee. However, Yakelin test was negative and there was no joint line tenderne ss. Her pain on the lateral aspect of the knee could be due to irritati on of the illiotib ial band possibly sustaine d from being hit on the outside of her knee by the goat. Patient should continue with ice, rest, and compress ion and take tylenol as needed. Based on the Stebbins Knee rule, imaging is not warrante d at this point (age less than 55, no isolated tenderne ss to patella or fibular head, 90 degree flexion of knee, ability to bear weight). If the pain has not improved in 1-2 weeks, patient should see an orthoped ist or get an MRI to evaluate for a possible medial meniscal injury. Problem Code: M25.561; Problem Code Type: ICD-10; Not Available [facility] 3 05:10:23 Acute upper respirat ory infectio n 79212020 Completed 201907/16/2019 06/25/19 20 - Comments only - Kelle Zavala SKEINER - In-offic e rapid flu negative . Possible COVID-19 , though pt does not qualify for testing based on age/sanjeev rbiditie s/occupa tion. Afebrile in office, VSS. Physical exam reassuri ng. Discusse d symptoma tic mgmt (neti pot, humidifi er, good hydratio n). Discusse d concerni ng sx indicati ng need for follow up (worseni ng sx despite treatmen t, continue d fever, chest discomfo rt, inabilit y to keep down fluids) and red flag sx requirin g emergenc y care (difficu lty breathin g). Discusse d importan ce of quaranti ne until 3 days after resoluti on of symptoms (or 7 days, whicheve r is longer). Problem Code: J06.9; Problem Code Type: ICD-10; Not Available [facility] 3 05:10:23 Verruca plantari s 26460847 Active 2019 Problem Code: B07.0; Problem Code Type: ICD-10; Not Available [facility] 3 05:10:23 Fatigue 96682116 Active 2021 Problem Code: R53.83; Problem Code Type: ICD-10; Not Available [facility] 3 05:10:24 Abnormal weight loss 845534375 Completed 202104/26/2023 03/30/20 22 - Comments only - Sunita Valdez PICK UP DRIVER - Labs today includin g CMP, CBC, lipid panel. Patient denies any family history of thyroid disease and declines labs for thyroid work-up at this time. Exam normal. Thinks weight loss is due to stress from divorce. Problem Code: R63.4; Problem Code Type: ICD-10; [address], [place], [address] , [place] - [facility] 4 11:42:39 Menopaus e present 846562591 Active 202103/30/20 22 - Comments only - Sunita Valdez PICK UP DRIVER - Does see BOTTOM STAINER and discusse s postmeno pausal symptoms . Does have vaginal Estrace cream if needed. Not currentl y sexually active. Problem Code: Z78.0; Problem Code Type: ICD-10; Not Available [facility] 3 05:10:24 Hyperlip idemia screenin g Active 202103/30/20 22 - Comments only - Sunita Valdez PICK UP DRIVER - Choleste rol panel ordered. Patient is nonfasti ng but had very minimal to eat today so should be somewhat accurate . Problem Code: Z13.220; Problem Code Type: ICD-10; Not Available [facility] 3 05:10:24 Screenin g for malignan t neoplasm of colon Active 202103/30/20 22 - Comments only - Sunita Valdez PICK UP DRIVER - Ifob ordered for colon cancer screenin g. Declines colonosc opy at this time. Problem Code: Z12.11; Problem Code Type: ICD-10; Not Available [facility] 3 05:10:24 Adult health examinat ion Active 202103/30/20 22 - Comments only - Sunita Valdez PICK UP DRIVER - Annual exam within normal limits for patient baseline . Problem Code: Z00.00; Problem Code Type: ICD-10; Not Available [facility] 3 05:10:25 Family problems 552878512 Active 2021 Problem Code: Z63.79; Problem Code Type: ICD-10; Not Available [facility] 3 05:10:25 Right upper quadrant pain 694755106 Active 202210/03/19 23 - Comments only - Sunita Valdez PICK UP DRIVER - abdomina l u/s ordered. Problem Code: R10.11; Problem Code Type: ICD-10; Not Available [facility] 3 05:10:25 Ullin - lesion 063781671 Completed 201903/30/2022 Problem Code: L84; Problem Code Type: ICD-10; Not Available [facility] 3 05:10:25 Blood in urine 91185571 Completed 201310/07/2014 MONIQUE JUNIOR [address], [place], [address] , [facility] 4 11:42:31 Screenin g for malignan t neoplasm of breast Completed 201803/30/2022 Problem Code: Z12.39; Problem Code Type: ICD-10; Not Available [facility] 3 05:10:26 Gastroes ophageal reflux disease 933021664 Completed 201303/21/2015 Not Available [facility] 3 05:10:26 Acute pharyngi tis 638056557 Completed 201707/31/2017 Problem Code: J02.9; Problem Code Type: ICD-10; Not Available [facility] 3 05:10:26 Low back pain 195443807 Completed 201407/24/2018 Problem Code: M54.5; Problem Code Type: ICD-10; Not Available [facility] 3 05:10:26 Exposure to communic able disease Completed 202103/30/2022 Problem Code: Z20.828; Problem Code Type: ICD-10; Not Available [facility] 3 05:10:26 Disorder of back 83177481 Completed 201303/21/2015 Problem Code: 724.9; Problem Code Type: ICD-9; Not Available [facility] 3 05:10:26 Fever 976650105 Completed 201807/24/2018 Problem Code: R50.9; Problem Code Type: ICD-10; Not Available [facility] 3 05:10:27 Adult health examinat ion Completed 201803/30/2022 Problem Code: Z00.00; Problem Code Type: ICD-10; Not Available [facility] 3 05:10:27 Osteopen ia 373209945 Active 2022 MONIQUE JUNIOR [address], [place], [address] , [facility] 4 11:42:07 Pain in coccyx 30904759 Active [address], [place], [address] , [facility] 4 09:24:44 Problem Notes None recorded. Procedures Surgical History Date Name Laterality Status Provider Name and Address Organization Details Recorded Time 3 Most Recent Bone Density completed CADENCE GARZA RN [facility] 04/26/2023 11:15:35 2 Most Recent Mammogram completed CADENCE GARZA RN [facility] 04/26/2023 11:14:59 2 Date of Last Pap Smear completed CADENCE GARZA RN [facility] 04/26/2023 11:14:41 Imaging Results Imaging Date Name Status LastModified by Organiz ation Details LastModified Time 06/22/2023 XR, sacrum + coccyx completed rbarter [address] [place], [address] 07/07/2023 08:08:27 08/04/2023 XR, spine, scoliosis series completed [email or web address] [address] [place], [address] 08/08/2023 12:19:49 05/10/2022 bone density completed Information not available 12/18/2023 04:32:55 05/09/2022 bone density completed Information not available 12/18/2023 04:32:56 02/23/2022 MAMMO, screening completed Information not available 12/18/2023 04:32:57 12/30/2019 MAMMO, screening completed Information not available 12/18/2023 04:33:00 09/30/2022 imaging/diagno stic result completed Information not available 12/18/2023 04:33:03 03/31/2022 imaging/diagno stic result completed Information not available 12/18/2023 04:33:31 05/09/2018 imaging/diagno stic result completed Information not available 12/18/2023 04:33:32 05/09/2018 imaging/diagno stic result completed Information not available 12/18/2023 04:33:33 03/31/2022 imaging/diagno stic result completed Information not available 12/18/2023 04:33:36 Procedure Notes None recorded. Medical Equipment None Reported. Allergies No known drug allergies Medications Name Sig Start Date Stop Date Status Note LastModified by Organization Details LastModified Time amoxicill in 500 mg capsule Take 1 cap by mouth BID 08/10 completed Not Available Not Available Not Available acetamino phen 325 mg tablet 2 tabs BID prn 2023 active Not Available Not Available Not Avai lable meloxicam 15 mg tablet Take 1 by mouth daily. 07/31 completed Not Available Not Available Not Available prednison e 20 mg tablet Take three tabs PO x 2 days, two tabs PO x 2 days, 1 tab PO x 2 days, then stop. 07/30 completed Not Available Not Available Not Available hydromorp idalmis 2 mg tablet 1 tab po q4h prn pain 2014 active Not Available Not Available Not Avai lable omeprazol e 10 mg capsule,d elayed release Take 1 capsule every day by oral route as needed. active Not Available Not Available No t Available Cipro 500 mg tablet 1 TAB twice daily 06/26 completed Not Available Not Available Not Available Neurontin 100 mg capsule take 2 tabs , twice daily 12/09 completed Not Available Not Available Not Available ibuprofen 200 mg tablet 3 Tabs three times daily 11/10 completed Not Available Not Available Not Available omeprazol e 20 mg capsule,d elayed release Take 1 capsule by mouth once a day 30 minutes prior to eating. 10/02 completed Not Available Not Available Not Available hydroxyzi ne HCl 25 mg tablet Take 1 tablet by mouth at bedtime as needed for sleep/an xiety 04/27 completed Not Available Not Available Not Available Proventil HFA 90 mcg/actua tion aerosol inhaler Inhale 2 puffs by mouth every 4-6 hours as needed (may substitu te proair or ventolin ) 09/22 completed Not Available Not Available Not Available hydroxyzi ne HCl 10 mg tablet TAKE 1 TABLET BY MOUTH ONCE DAILY NEEDED FOR ANXIETY active uses sparingl y Not Available Not Available Not Available amoxicill in 875 mg-potass ium clavulana te 125 mg tablet Take 1 tab by mouth twice daily for 7 days 07/31 completed Not Available Not Available Not Available calcium-m agnesium one po daily 2023 active Not Available Not Available Not Avai lable multivita min 1TAB daily 2013 active Not Available Not Available Not Avai lable NuvaRing .[id number] 11/10 completed Not Available Not Available Not Available omeprazol e 20 mg tablet,de layed release Take 1 by mouth daily 07/31 completed Not Available Not Available Not Available Vitals Date Recorded Body height Body mass index (BMI) Body weight Body temperature Oxygen saturation Oxygen saturation in Arterial blood by Pulse oximetry Heart rate Systolic blood pressure Diastolic blood pressure Provider Name and Address Organization Details Last Updated DateTime 3 170.18 cm 17.2 kg/m2 92679.1 6 g 96.5 [degF] 96 % 96 % 71 /min 126 mm[Hg] 72 mm[Hg] ITZEL SEQUEIRA [facility] 3 13:56:52 Date Recorded Body height Body mass index (BMI) Body weight Body temperature Heart rate Respiratory rate Systolic blood pressure Diastolic blood pressure Provider Name and Address Organization Details Last Updated DateTime 4 170.18 cm 19.2 kg/m2 30700.1 4 g 97.9 [degF] 70 /min 16 /min 100 mm[Hg] 60 mm[Hg] CADENCE GARZA RN [facility] 4 11:35:54 Date Recorded Body height Body mass index (BMI) Body weight Body temperature Oxygen saturation Oxygen saturation in Arterial blood by Pulse oximetry Respiratory rate Systolic blood pressure Diastolic blood pressure Provider Name and Address Organization Details Last Updated DateTime 4 170.18 cm 19.6 kg/m2 84976.0 5 g 98.6 [degF] 98 % 98 % 16 /min 112 mm[Hg] 62 mm[Hg] CLAUDINE DE LA CRUZ RN [facility] 4 09:08:53 Date Recorded Body height Body mass index (BMI) Body weight Body temperature Oxygen saturation Oxygen saturation in Arterial blood by Pulse oximetry Heart rate Respiratory rate Systolic blood pressure Diastolic blood pressure Provider Name and Address Organization Details Last Updated DateTime 5 170.18 cm 19.4 kg/m2 02843.0 2 g 98.1 [degF] 97 % 97 % 72 /min 14 /min 104 mm[Hg] 62 mm[Hg] CADENCE GARZA RN [facility] 5 11:25:02 Social History Question Answer Notes LastModified by Organizat ion Details LastModified Time Tobacco Smoking Status Former Smoker Quit in 1987 CADENCE GARZA RN [facility], [facility] 04/26/2023 11:31:18 Do You Have An Advance Directive? No Information n ot available 04/30/2024 What Type Of Diet Are You Following? REGULAR Information n ot available 04/26/2023 How Many Times Per Week Do You Exercise? 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 16+yearssinc elastcigaret te Information not available 03/21/2023 Would You Say That, In General, Your Health Is Good Information not available 04/26/2023 How Often Does Anyone, Including Family, Physically Hurt You? Never Information not available 04/26/2023 How Often Does Anyone, Including Family, Insult Or Talk Down To You? Sometimes Information no t available 04/30/2024 How Often Does Anyone, Including Family, Threaten You With Harm? Rarely Information not available 04/26/2023 How Often Does Anyone, Including Family, Scream Or Curse At You? Rarely Information not available 04/26/2023 Within The Past 12 Months, You Worried That Your Food Would Run Out Before You Got Money To Buy More. Never True Information n ot available 04/26/2023 Within The Past 12 Months, The Food You Bought Just Didn't Last And You Didn't Have Money To Get More. Never True Information n ot available 04/26/2023 How Hard Is It For You To Pay For The Very Basics Like Food, Housing, Medical Care, And Heating? Would You Say It Is: Somewhat Hard Information not available 04/26/2023 In The Past 12 Months, Has Lack Of Reliable Transportation Kept You From Medical Appointments, Meetings, Work Or From Getting Things Needed For Daily Living? No Information not available 04/26/2023 What Is Your Housing Situation Today? I Have Housing. Information not available 04/26/2023 How Often In The Past Year Have You Used Marijuana (including Smoking, Vaping, Dabbing, Or Edibles)? 2-3 Times Per Week Information not available 04/30/2024 How Often In The Past Year Have You Used Prescription Medications That Were Not Prescribed To You? Never Information n ot available 04/26/2023 How Often In The Past Year Have You Taken Your Own Prescription Medication More Than The Way It Was Prescribed Or For Different Reasons Than Its Intended Purpose? Never Information no t available 04/26/2023 How Often In The Past Year Have You Used Other Drugs (for Example, Heroin, Cocaine, Meth, Salvia, Inhalants)? Never Information not available 04/26/2023 Have You Ever Used IV Drugs? No Information not available 04/26/2023 Date Of Most Recent SBINS 04/30/2024 Information not available 04/30/2024 Do You Have A Medical Power Of Cable Installation Technician? No Information not available 04/30/2024 What Was The Date Of Your Most Recent Tobacco Screening? 04/30/2024 Information not available 04/30/2024 At What Age Did You Start Smoking Tobacco? 13 Information not available 03/21/2023 How Much Tobacco Do You Smoke? No Information not available 04/26/2023 How Many Years Have You Smoked Tobacco? 10 Information not available 03/21/2023 Do You Have Any Dietary Restrictions? No Information not available 04/26/2023 Do You Or Have You Ever Used Any Other Forms Of Tobacco Or Nicotine? No Information not available 03/21/2023 Sex: Female Functional Status Question Answer Note LastModified by Organization D etails LastModified Time What is your exercise level? Moderate Information not available 04/26/2023 Mental Status None recorded. Family History Relationship Description Onset Age of this Age Resolved Age Notes LastModified by Organization Details LastModified Time Father Family history of malignant neoplasm [email or web address] Not available 2022 04:00:40 Mother No family history of respiratory disease [email or web address] Not available 2022 04:00:40 Notes:*Problem: Mother: Dece ased 80yo COPD Father: 72yo pancreatic CA Sisters: 2 sisters good healthBrothers: 2 brothers good health (one brother ) Children: son and dtr both healthy Family History of: Hypertension: No Hyperlipidemia: No Coronary heart disease: Yes father [place]/CAD Diabetes mellitus: No Breast cancer: No Colorectal cancer: No Prostate cancer: No Alcoholism: Yes both parents Mental illness: No Other: Yes scoliosis pt and sister Medical History No medical history recorded. Gynecological History Statement/Question Response Abnormal Pap N Date of Last Pap Smear 01/19/2022 Most Recent Mammogram 02/23/2022 Most Recent Bone Density 05/09/2022 Obstetrics History GPAL:G 0 P 0 0 0 0 Immunizations Vaccine Type Date Status Note Provider Nam e and Address Organization Details Recorded Time Tdap 9 completed Not Available [facility] 02/10/2023 06:04:33 Influenza, split virus, trivalent, preservative 5 completed Not Available [facility] 02/10/2023 06:04:33 Influenza, split virus, quadrivalent, PF 9 completed Not Available [facility] 02/10/2023 06:04:33 Influenza, split virus, quadrivalent, PF 2 completed Not Available [facility] 02/10/2023 06:04:33 SARS-COV-2 (COVID-19) vaccine, UNSPECIFIED 2 completed Not Available [facility] 02/10/2023 06:04:33 SARS-COV-2 (COVID-19) vaccine, UNSPECIFIED 1 completed Not Available [facility] 02/10/2023 06:04:33 SARS-COV-2 (COVID-19) vaccine, UNSPECIFIED 1 completed Not Available [facility] 02/10/2023 06:04:34 influenza, unspecified formulation 4 completed Not Available [facility] 02/10/2023 06:04:34 COVID-19, subunit, rS-nanoparticle, adjuvanted, PF, 5 mcg/0.5 mL 4 completed CADENCE GARZA RN null, [facility] 04/26/2023 11:29:50 influenza, unspecified formulation 4 completed CADENCE GARZA RN [facility], [facility] 04/26/2023 11:30:19 Past Encounters Encounter ID Performer Location Encounter Start Date Encounter Closed Date Diagnosis/Indication Diagnosis SNOMED-CT Code Diagnosis ICD10 Code Diagnosis Note [id number] MONIQUE DUMONT [address], [address] [place] [address] 03/21/2023 13:42:42 03/21/2023 14:30:45 Shoulder pain [id number] M25.519 57 year old female with concerns for L anterior shoulder/u pper arm pain since November 2022, 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 Patient still with preserved full ROM and strength 4-5/5, but pain elicited with strength testing. Discussed continued symptomati c, conservati ve treatment, and PT referral. [id number] MONIQUE JUNIOR [facility] [address] [place] [address] 04/26/2023 11:19:10 04/26/2023 12:32:40 Screening for malignant neoplasm of colon 411733454 Z12.11 Referral placed for colonoscop y screening at [facility] Adult [facility] th examination 815411723 Z00.00 Normal annual preventati ve healthcare screening exam. Colonoscop y ordered for colon cancer screening. Up-to-date on Pap screening. Mammogram she declines this year but will get next year. Last mammogram last year was normal but category C density. Bone density screening up-to-date last was last year with osteopenia . Continue vitamin D and calcium for this. Immunizati ons up-to-date . Labs up-to-date . [id number] BJ MARTÍNEZ MD [facility] [address] [place] [address] 06/22/2023 09:02:29 06/22/2023 10:06:33 Screening for malignant neoplasm of colon 719096363 Z12.11 Pain in coccyx 78751489 M53.3 worse pain after initial improvemen t. Trauma was the initial inciting event. No red flags. Her h/o scoliosis may be playing a role. Get XR and pain management . Can try topical NSAID. [id number] Sanam Miranda [facility] [address] [place] [address] 04/30/2024 11:04:45 04/30/2024 12:50:09 Adult health examination [id number] Z00.00 Normal annual preventati ve healthcare screening exam.Colon oscopy ordered for colon cancer screening. Up-to-date on Pap screening until 2026Mammog flori ordered. Last mammogram 2022 was normal but category C density.Elijah ne density screening up-to-date last was 2022. with osteopenia .Continue vitamin D and calcium for this.Immun ization series for shingles started today Screening for malignant neoplasm of colon [id number] Z12.11 Referral placed for colonoscop y screening - pt never scheduled as she states [facility] never got the order last year. Sending again today. Screening mammography [id number] [id number] Z12.31 last mammogram 02/23/2022 Cat 1C. Pt will get appt at [facility] for mammogram Hyperlipid emia screening 929528823 Z13.220 Thyroid di sorder screening 765244063 Z13.29 Gastroesop hageal reflux disease without esophagitis 245432111 K21.9 Osteopenia 890173473 M85 .80 isn't really taking her vitamin D or calcium right now Fatigue 47768033 R53.83 Foot callus 506365839 L8 4 Health Concerns Section Related Observation LastModified by Organization Detai ls LastModified Time None Recorded Concern Status LastModified by Organization Details LastModified Time None Recorded Advance Directives Directive N: Payers Encounter Date Sequence Insurance Name Policy Number Policy Esqueda Covered Member ID Esqueda Member ID Guarantor Name 03/21/2023 1 [facility] (MEDICAID) Cindinatasha Brandon [id number] Cindinatasha Brandon 04/26/2023 1 [facility] (MEDICAID) Cindinatasha Brandon [id number] Cindinatasha Brandon 06/22/2023 1 [facility] (MEDICAID) Cindinatasha Brandon [id number] Cindinatasha Brandon Notes Date Note Type Note Provider Name and Address Organization Details Recorded Time 03/21/2023 text/html Patient with L u pper arm injury that she believes likely occurred 11/2022, while trimming goat hooves. 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 Since then, has been attempting to treat with ice, heat, rest, stretches, OTC pain relievers, TENS unit without significant improvement. ALTON ESCOTO, MONIQUE [address], [place], [address], [facility]. 03/21/2023 14:48:04 04/26/2023 text/html Cindi is a pleasant 57-year-old female here today for an annual preventative healthcare exam. She has no concerns today. She has gained about 11 pounds back since her last visit. Was going through a very stressful time with the divorce. That has finally ended and she is doing much better with normal everyday appetite and eating as well as less stress in her life. Has no health complaints. She is due for colonoscopy as well as mammogram. She did have a mammogram last year and bone density screening. It did show osteopenia. Mammogram showed category C but normal. She declines mammogram this year. Is taking vitamin D and calcium for osteopenia. Is agreeable to getting colonoscopy. Has no bowel issues. Has never had a colonoscopy. MONIQUE JUNIOR [address], [place], [address], [facility]. 04/26/2023 13:42:00 06/22/2023 text/html She fell off a s tack of wood on February 18 and fell directly on a wood chair on her tailbone. It was excruciatingly painful. Since then it gradaully improved, but for the past 3 weeks it has gotten worse. worse sitting. Also hurts to go from squat to sitting. There has been not precipitating event. had a cold last week, but she did not have fevers, better. no radiation. MD [address], [place], [address], [facility]. 06/22/2023 09:43:46 OBGyn Episode No OBEpisode recorded.
--- OUTSIDE RECORDS SUMMARY | 2024-04-30 14:17 | XMS_ITS | Encounter Summary ---
Author Organization [facility] Address [address] [place] [address] Care Team Providers Care Regulatory Compliance Specialist Name Role Phone Unknown, Provider Primary Care Provider Unava ilable Encounter Details Date Type Department Care Team (Late st Contact Info) Description 01/19/2022 Lab Requisition [facility] Pathology & Laboratory Medicine - [facility] [address] [place] [address] Arianna Montes De Oca, ELECTRICAL ASSEMBLIES SUPERVISOR [address] [place] [address] Encounter for other general examination Social History Tobacco Use Types Packs/Day Years [...] Procedure Name Priority Date/Time Associated Diagnosis Comments PAP TEST Today 01/19/2022 11:15 EDT Encounter for other general examination CHLAMYDIA/N. GONORRHOEAE AMPLIFIED NUCLEIC ACID, THINPREP Today 01/19/2022 11:15 EDT HPV DNA DETECTION WITH GENOTYPING, PCR Today 01/19/2022 11:15 EDT Encounter for other general examination documented in this encounter Results * HUMAN PAPILLOMAVIRUS (HPV) DETECTION-HIGH RISK TYPES (01/19/2022 11:15 EDT) HPV other High Risk types, PCR Negative Negative 02/01/2022 14:45 EDT [facility] Comment:No E6 or E7 mRNA is detected from HPV types 16,18,31,33,35,39,45,51,52,56,58,59,66, and 68 by coating mixer mediated amplification. Papanicolaou smear specimen (specimen) CERVIX UTERI STRUCTURE / Unknown 01/19/2022 11:15 EDT 01/27/2022 11:42 EDT us Arianna Montes De Oca ELECTRICAL ASSEMBLIES SUPERVISOR MICROBIOLOGY - GENERAL OR DERABLES Final Result [facility] [address] [place] [address] * PAP TEST (01/19/2022 11:15 EDT) Specimens A. Cervix and/or Endocervix , ThinPrep Imaging System with Manual Evaluation 02/01/2022 14:45 [facility] Specimen Adequacy Satisfactory for Evaluation - transformation zone component present 02/01/2022 14:45 [facility] General Categorization Negative for intraepithelial lesion or malignancy 02/01/2022 14:45 [facility] Attestation . 02/01/2022 14:45 [facility] at 1444 Clinical History See below 02/02/20 14:45 [facility] HPV The result for the Human Papillomavirus (HPV) Detection-High Risk Types is Negative. No E6 or E7 mRNA is detected from HPV types 16,18,31,33,35,39 ,45,51,52,56,58,5 9,66, and 68 by coating mixer mediated amplification.Pamela ting was performed on specimen [id number] and was resulted on 02/01/2022 1426 EDT by ALEKSANDAR, LAB INSTRUMENT RESULTS IN 02/01/2022 14:45 T [facility] Performing Lab [facility] 02/01/2022 14:45 T [facility] Scanned Images 02/01/2022 14:45 EDT [facility] Papanicolaou smear specimen (specimen) CERVIX UTERI STRUCTURE / Unknown 01/19/2022 11:15 EDT 01/20/2022 12:50 EDT us [place] A Tavon ELECTRICAL ASSEMBLIES SUPERVISOR PATHOLOGY ORDERABLES Hollie l Result Performing Organization Address City/[facility] Co de Phone Number [facility] [address] [place] [address] * CHLAMYDIA/N. GONORRHOEAE AMPLIFIED RNA, THINPREP (01/19/2022 11:15 EDT) Neisseria gonorrhoeae Result Negative Negative 01/20/2022 14:01 EDT [facility] Chlamydia trachomatis Result Negative Negative 01/20/2022 14:01 EDT [facility] Papanicolaou smear specimen (specimen) CERVIX UTERI STRUCTURE / Unknown 01/19/2022 11:15 EDT 01/20/2022 8:37 EDT us Arianna A Tavon ELECTRICAL ASSEMBLIES SUPERVISOR MICROBIOLOGY - GENERAL OR DERABLES Final Result Performing Organization Address [facility] Co de Phone Number [facility] [address] [place] [address] documented in this encounter Visit Diagnoses Diagnosis Encounter for other general examination documented in this encounter Care Teams Regulatory Compliance Specialist Relationship Specialty Start Date End Date Unknown, Provider, PCP - General 07/20/12 documented as of this encounter
--- OUTSIDE RECORDS SUMMARY | 2024-04-30 14:17 | XMS_ITS | Encounter Summary ---
Author Organization [facility] Address [address] [place] [address] Care Team Providers Care Pharmacy Stock Clerk Name Role Phone Unknown, Provider Primary Care Provider Unava ilable Encounter Details Date Type Department Care Team (Late st Contact Info) Description 10/18/2018 Results Only [facility]- [facility] [phone] Jackyln Masters, [facility] [address] [place] [address] [place] [phone] Social History Tobacco Use Types Packs/Day Years [...] Name Priority Date/Time Associated Diagnosis Comments PAP TEST- RESULT ONLY Routine 10/18/2018 0:00 EDT documented in this encounter Results * PAP TEST- RESULT ONLY (10/18/2018 0:00 EDT) Pathology Report: CYTOPATHOLOGY REPORT Reports generated via electronic interface contain original data; however they are lacking the format of the original report. Caution should be taken when reading/interpreti ng unformatted reports. Name: ? CINDI BRANDON ? Accession #: ? [id number] ? : ? 1965 (Age: 53) ??F ?Collect Date: ? 10/18/2018 ? Location: ? [facility] ? Receive Date: ? 10/19/2018 ? Provider: AJCKLYN MASTERS BUTT TRIMMER Copy to: SEAN VARGHESE MD ? Final Report SPECIMEN ADEQUACY ? Satisfactory for Evaluation - transformation zone component present GENERAL CATEGORIZATION ? Negative for Intraepithelial Lesion or Malignancy ?? Last Menstrual Period: 2016 Specimen/Source: ??Pap Test, Cervix, ThinPrep Imaging System with manual evaluation Document reviewed and electronically signed by: ? Magi Gomez, [facility](ASCP) ? Report ??Date: 10/22/2018 14:44 HPV with Pap Test ? Date Ordered: ? 10/22/2018 ? Status: ?? Signed Out ?Date Complete: ? 10/23/2018 ? By: ??System Interface ? Date Reported: ? 10/23/2018 ? Interpretation RESULT: Negative for HPV. No E6 or E7 mRNA is detected from HPV types 16,18,31,33,35, 39,45,51,52,56,58, 59,66, and 68 by epic beacon analyst mediated amplification. Comments Document reviewed and electronically signed by: ? System Interface ? Report date: 10/23/2018 By the signature above, the attending physician certifies that he/she has personally conducted a gross and/or microscopic examination of the described specimens and rendered or confirmed the above diagnosis. End of Report [facility] 10/18/2018 10/19/2018 us Jacklyn Masters BUTT TRIMMER PATHOLOGY ORDERABLES Final R esult [facility] [address] [place] [address] documented in this encounter Visit Diagnoses Not on filedocumented in this encounter Care Teams Pharmacy Stock Clerk Relationship Specialty Start Date End Date Unknown, Provider, PCP - General 07/20/12 documented as of this encounter
--- OUTSIDE RECORDS SUMMARY | 2024-04-30 14:17 | XMS_ITS | Encounter Summary ---
Author Organization [facility] Address [address] [place] [address] Care Team Providers Care Paper Cutting Machine Operator Name Role Phone Unknown, Provider Primary Care Provider Unava ilable Encounter Details Date Type Department Care Team (Late st Contact Info) Description 07/05/2013 Results Only [facility] [phone] Stormy Gonzalez MD [address] [address] Social History Tobacco Use Types Packs/Day Years [...] Procedure Name Priority Date/Time Associated Diagnosis Comments CYTOPATHOLOGY Routine 07/05/2013 0:00 EDT documented in this encounter Results * CYTOPATHOLOGY (07/05/2013 0:00 EDT) Pathology Report: CYTOPATHOLOGY REPORT Reports generated via electronic interface contain original data; however they are lacking the format of the original report. Caution should be taken when reading/interpreti ng unformatted reports. Name: ? CINDI BRANDON ? Accession #: ? [id number] : ? 1965 (Age: 48) ??F ?Collect Date: ? 07/05/2013 Location: ? [facility] ? Receive Date: ? 07/08/2013 Provider: ? STORMY GONZALEZ MD Copy to: ?SEAN VARGHESE MD ? CYTOLOGIC DIAGNOSIS: URINE, VOIDED, CYTOLOGIC EVALUATION: - ??Negative for malignant cells. - ??rare urothelial cells and numerous squamous cells present. - ??Rare hemorrhagic casts and red blood cells noted in the background. Document reviewed and electronically signed by: ? CECE MUÑOZ MD [facility] Report Date: ??07/08/2013 17:43 By the signature above, the attending physician certifies that he/she has personally conducted a gross and/or microscopic examination of the described specimens and rendered or confirmed the above diagnosis. Specimen Type: ? Urine, Voided Clinical History: ? Gross hematuria. ? Gross Description: ? One vial of Cytolyt was received and processed by selective cellular enhancement technique. ? End of Report [facility] 07/05/2013 07/08/2013 8:5 6 EDT us Stormy Gonzalez MD PATHOLOGY ORDERABLES Final Re sult [facility] [address] [place] [address] documented in this encounter Visit Diagnoses Not on filedocumented in this encounter Care Teams Paper Cutting Machine Operator Relationship Specialty Start Date End Date Unknown, Provider, PCP - General 07/20/12 documented as of this encounter
--- OUTSIDE RECORDS SUMMARY | 2024-04-30 14:17 | XMS_ITS | Encounter Summary ---
Author Organization [facility] Address [address] [place] [address] Care Team Providers Care Methods Examiner Name Role Phone Unknown, Provider Primary Care Provider Unava ilable Encounter Details Date Type Department Care Team (Latest Contact Info) Description 07/05/2013 11:01 EDT - 07/05/2013 23:59 EDT Hospital Encounter [address] [address] Unknown, ProviderMD Discharge Disposition: Home or Self Care Social History Tobacco Use Types Packs/Day Years Used Date Smoking Tobacco: Never Assessed Comments Unknown Sex and Gender Information Value Date Recorded Sex Assigned at Not on file Legal Sex Female 17:57 EST Gender Identity Not on file Sexual Orientation Not on file documented as of this encounter Discharge Disposition Disposition Code Departure Means Destination Home or Self [facility] documented in this encounter Plan of Treatment Not on file documented as of this encounter Visit Diagnoses Not on filedocumented in this encounter Care Teams Methods Examiner Relationship Specialty Start Date End Date Unknown, ProviderMD PCP - General 07/20/12 documented as of this encounter
--- OUTSIDE RECORDS SUMMARY | 2024-04-30 14:17 | XMS_ITS | Encounter Summary ---
Author Organization [facility] Address [address] [place] [address] Care Team Providers Care Manufacturing Laborer Name Role Phone Unknown, Provider Primary Care Provider Unava ilable Encounter Details Date Type Department Care Team (Late st Contact Info) Description 07/19/2012 Results Only [facility] Laboratory Services - [facility] ([facility] [address] [place] [address] Jacklyn Masters, [facility] [address] [place] [address] [place] [address] Social History Tobacco Use Types Packs/Day Years [...] Diagnosis Comments PAP TEST- RESULT ONLY Routine 07/19/2012 0:00 EDT documented in this encounter Results * PAP TEST- RESULT ONLY (07/19/2012 0:00 EDT) Pathology Report: CYTOPATHOLOGY REPORT Reports generated via electronic interface contain original data; however they are lacking the format of the original report. Caution should be taken when reading/interpreti ng unformatted reports. Name: ? CINDI BRANDON ? Accession #: ? [id number] ? : ? 1965 (Age: 47) ??F ?Collect Date: ? 07/19/2012 ? Location: ? [facility] ? Receive Date: ? 07/20/2012 ? Provider: JACKLYN MASTERS [facility] Copy to: SEAN VARGHESE MD ? Final Report SPECIMEN ADEQUACY ? Satisfactory for Evaluation - transformation zone component present GENERAL CATEGORIZATION ? Negative for Intraepithelial Lesion or Malignancy ?? Last Menstrual Period: 06/29/11 Hormonal/Contracep tive status: Yes: nuva ring Other: Additional clinical information: pap 06/29/09 normal with -HPV Specimen/Source: ??Pap Test, Cervix/Endocervix, ThinPrep Imaging System with manual evaluation Document reviewed and electronically signed by: ? TAL Farley(ASCP) ? Report ??Date: 07/25/2012 15:08 HPV with Pap Test ? Date Ordered: ? 07/25/2012 ? Status: ?? Signed Out ?Date Complete: ? 07/27/2012 ? By: ??System Interface ? Date Reported: ? 07/27/2012 ? Interpretation RESULT: Negative for HPV. No E6 or E7 mRNA is detected from HPV types 16,18,31,33,35, 39,45,51,52,56,58, 59,66, and 68 by repairer shoe sticks mediated amplification. Comments Document reviewed and electronically signed by: ? System Interface ? Report date: 07/27/2012 By the signature above, the attending physician certifies that he/she has personally conducted a gross and/or microscopic examination of the described specimens and rendered or confirmed the above diagnosis. End of Report [facility] 07/19/2012 07/20/2012 Jacklyn Masters [employer] PATHOLOGY ORDERABLES Final R esult Performing Organization Address City/State/[facility] Co de Phone Number [facility] [address] [place] [address] documented in this encounter Visit Diagnoses Not on filedocumented in this encounter Care Teams Manufacturing Laborer Relationship Specialty Start Date End Date Unknown, Provider, PCP - General 07/20/12 documented as of this encounter
--- OUTSIDE RECORDS SUMMARY | 2024-04-30 14:17 | XMS_ITS | Clinical Summary ---
Author Organization [facility] Address [address] [place] [id number] Care Team Providers Care Motorcycle Repairer Name Role Phone Unknown, Provider Primary Care Provider Unava ilable Social History Tobacco Use Types Packs/Day Years Used Date Smoking Tobacco: Never Assessed Comments Unknown Sex and Gender Information Value Date Recorded Sex Assigned at Not on file Legal Sex Female 17:57 EST Gender Identity Not on file Sexual Orientation Not on file Plan of Treatment Health Maintenance Due Date Last Done Comments Hepatitis C Screen 1965 Hepatitis B Vaccine (1 of 3 - 19+ 3-dose series) 05/12 COVID-19 Vaccine (2023- season) 2023 Care Teams Motorcycle Repairer Relationship Specialty Start Date End Date Unknown, Provider, PCP - General 07/20/12
--- OUTSIDE RECORDS SUMMARY | 2024-04-30 14:17 | XMS_ITS | Encounter Summary ---
Author Organization [facility] Address [address] [place] [id number] Care Team Providers Care Senior Climate Advisor Name Role Phone Unknown, Provider Primary Care Provider Unava ilable Encounter Details Date Type Department Care Team (Late st Contact Info) Description 01/01/2022 Lab Requisition [facility] Pathology & Laboratory Medicine - [address] [id number] Outr Resulting Lab, Provider Social History Tobacco [...] Procedure Name Priority Date/Time Associated Diagnosis Comments ZZCOVID-19 TEST [facility] LAB PCR Today 12/31/2021 11:10 EDT COVID-19 TESTING Routine 12/31/2021 11:1 0 EDT documented in this encounter Results * COVID-19 TEST [facility] LAB PCR (12/31/2021 11:10 EDT) Swab 12/31/2021 11:1 0 EDT 01/01/2022 21:24 EDT us Provider Outr Resulting Lab MICROBIOLOGY - GENER AL ORDERABLES Final Result [facility] [address] [place] [address] * COVID-19 TESTING (12/31/2021 11:10 EDT) COVID-19 rt-PCR Result Negative Negative 01/02/2022 11:28 EDT [facility] Comment: This test has not been FDA cleared or approved. This test has been authorized by FDA under an EUA for use by authorized laboratories. This test has been authorized only for detection of nucleic acid from 2019-nCoV, not for any other viruses or pathogens. This test is only authorized for the duration of the declaration that circumstances exist justifying the authorization of emergency use of in vitro diagnostic tests for detection and/or diagnosis of 2019-nCoV under section 564(b)(1) of Act, 21 U.S.C ?? 360bbb-3(b) (1), unless the authorization is terminated or revoked sooner. Negative results do not preclude 2019-nCoV infection and should not be used as the sole basis for treatment or other patient management decisions. Negative results must be combined with clinical observations, patient history, and epidemiological information. Testing was performed using the chandler SARS-CoV-2 assay ([employer] on the Chandler 6800 System Performing Lab [facility] [address] [facility] Lab 01/02/2022 11:28 EDT [facility] Swab 12/31/2021 11:1 0 EDT 01/01/2022 21:24 EDT us Provider Outr Resulting Lab MICROBIOLOGY - GENER AL ORDERABLES Final Result [facility] [address] [place] [address] documented in this encounter Visit Diagnoses Not on filedocumented in this encounter Care Teams Senior Climate Advisor Relationship Specialty Start Date End Date Unknown, Provider, PCP - General 07/20/12 documented as of this encounter
[2024-04-30 19:24] LABS: Abs Immature Grans 0.01 10^3/uL (0.0-0.06); Absolute Basophil Count 0.04 10^3/uL (0.0-0.2); Absolute Eosinophil Count 0.32 10^3/uL (0.0-0.7); Absolute Lymphocyte Count 2.24 10^3/uL (1.2-3.4); Absolute Monocyte Count 0.71 10^3/uL (0.1-0.8); Absolute Neutrophil Count 4.04 10^3/uL (1.2-6.7); Basophils % 0.5 %; Eosinophils % 4.3 %; HCT 42.1 % (36.0-46.0); Immature Grans % 0.1 %; Lymphocytes % 30.4 %; MCH 31.6 pg (27.0-33.0); MCHC 33.3 % (32.0-36.0); MCV 95 fL (80-95); MPV 9.9 fL (8.0-11.0); Monocytes % 9.6 %; Neutrophils % 55.1 %; Platelet Count 298 10^3/uL (130-400); RBC 4.43 10^6/uL (3.93-5.22); RDW 11.8 % (11.7-14.6); RDW-SD 41.1 fL; WBC 7.36 10^3/uL (4.4-10.8)
[2024-04-30 19:53] LABS: ALT 42 U/L (14-59); AST 24 U/L (15-37); Albumin 4.2 g/dL (3.4-5.0); Alkaline Phosphatase 61 U/L (46-116); Anion Gap 7.8 mmol/L (3-11); BUN 14 mg/dL (7-18); Bilirubin, Total 0.62 mg/dL (0.2-1.0); CO2 30.2 mmol/L (21.0-32.0); CREATININE 0.7 mg/dL (0.55-1.02); Calcium 9.6 mg/dL (8.5-10.1); Calculated LDL 127 mg/dL (<100); Chloride 106 mmol/L (98-107); Cholesterol 244 mg/dL (<200); Estimated GFR 100.19 (mL/min/1.73m2); Ferritin 142 ng/mL (8-252); Glucose 94 mg/dL (74-106); HDL Cholesterol 97 mg/dL (40-60); Potassium 4.4 mmol/L (3.5-5.1); Sodium 144 mmol/L (136-145); TSH (W/Ref FT4) 0.86 uIU/mL (0.36-3.74); Total Protein 7.3 g/dL (6.4-8.2); Triglyceride 103 mg/dL (<150); Vitamin D 25 Total 22.8 ng/mL (30-100)
[2024-04-30 20:03] LABS: Iron 131 ug/dL (50-170); Total Iron Binding Capacity 325 ug/dL (250-450); Transferrin Sat 40 % (15-50)
== END 2024-04-30 14:07 | disposition home or self-care (01) ==
LOC: NCHCN 14:06
PROVIDERS: PCP Family Medicine; Visit Provider Nurse Practitioner Family
DX: Z13.220 Encounter for screening for lipoid disorders (principal); Z13.29 Encounter for screening for other suspected endocrine disorder; K21.9 Gastro-esophageal reflux disease without esophagitis
CPT/HCPCS: 80053; 80061; 82306; 82728; 83540; 83550; 84443; 85025

== ENCOUNTER 2024-06-04 02:24 | Outpatient (CLI) | payer MEDICAID, SELFPAY ==
--- NOTE | 2024-06-04 08:45 | DI.MRI_ITS ---
Exam(s) MR LOWER JOINT RT WO EXAM: MR LOWER JOINT RT WO CLINICAL HISTORY: KNEE JOINT LAXITY, OTHER INTERNAL DERANGEMENT RT KNEE, M23.8X9 TECHNIQUE: Multiplanar multisequence MRI of the knee was performed. COMPARISON: There are no plain films of the right knee available time of this MRI interpretation. FINDINGS: EFFUSION: There is a small joint effusion. There is a tiny Cervantes cyst in the medial popliteal fossa. . MARROW:There is no evidence of fracture, tumor, there is subarticular bone edema in the outer 3rd of the medial compartment both within the medial femoral condyle and outer most aspect of the medial tib ial plateau. There is mild subarticular edema in the lateral tibial plateau which appears to be asso ciated with a small degenerative subarticular cyst at this level. PATELLOFEMORAL COMPARTMENT: There is some signal abnormality in the distal quadriceps tendon consiste nt with want of tendinitis. There is no significant tear at this level. There is mild increased sig nal noted within the adjacent patellar fat pad. There is no abnormality of the patellar ligament nor of the anterior intra-articular Hoffa fat pad. There is no significant thinning of the retropatellar cartilage. No evidence of fissure nor signific ant chondral defect. No osteochondral defect at this level. There is mild focal bone edema in the p osterior patella at mid aspect. There is, however, no obvious cartilage defect at this level.There i s no intraosseous signal to suggest recent patellar dislocation. There are no patellar retinacular te ars. CRUCIATE LIGAMENTS: There is slight thinning of the anterior cruciate ligament. The more anterior of the 2 fascicles appears intact. The more posterior of the 2 fascicles appears thinner.There is no f ull-thickness tear of the ACL. The posterior cruciate ligament exhibits mild increased insertional s ignal on the medial condyle but no high-grade tear. MEDIAL COMPARTMENT/MEDIAL MENISCUS: There is oblique and transverse tearing of the posterior horn and body of the medial meniscus. There is some extrusion of part of the torn lateral 3rd into the exter nal gutter interposed between the tibia and MCL. The anterior horn appears intact There is small cartilage defect overlying the meniscal tear and subjacent edema within the subarticul ar aspect of the outer 3rdof the medial femoral condyle. There is also some subarticular edema in th e underlying outer 3rd of the medial tibial plateau. No medial compartment osteophytes. MEDIAL COLLATERAL LIGAMENT: Surrounding increased signal but no high-grade tear of this structure nor intrasubstance fluid collection. LATERAL COMPARTMENT/LATERAL MENISCUS: Posterior horn of the lateral meniscus appears intact. There i s, however, signal abnormality within the anterior horn, medially. This signal abnormality does cont act the inferior articular surface at this level and therefore is probably a tear of the anterior hor n of the lateral meniscus. There is some adjacent cystic configuration which is probably a dilated d egenerative meniscal cyst component. There are no chondral defects, osteochondral defects, subarticu lar marrow edema, nor osteophytes evident. ILIOTIBIAL BAND: Intact LATERAL COLLATERAL LIGAMENT COMPLEX: The fibular collateral ligament is intact. The biceps femoris t endon is intact.Popliteus muscle and tendon are intact. IMPRESSION: 1. There is oblique and linear tearing of the posterior horn and body of the medial meniscus, as desc ribed above. There is some outward extrusion of part of the torn lateral 3rd into the para tibial gu tter. There are no flipped meniscal fragments. There is some focal cartilage loss over this area wi th focal bone edema evident in the outer 3rd of the medial femoral condyle and subjacent outer 3rd of the medial tibial plateau. 2. There also appears to be a tear in the medial aspect of the anterior horn of the lateral meniscus, as described above. No obvious chondral defects in the lateral compartment. 3. Some thinning of the anterior cruciate ligament is noted but no full-thickness tear. Also mild in creased signal at the femoral insertion site of the PCL but no high-grade PCL tear 4. No evidence of collateral ligament tears. 5. There is a small joint effusion and a tiny Cervantes cyst. 6. Some tendinitis signal is noted within the distal quadriceps tendon but no high-grade tear. DATA REPOSITORY:
== END 2024-06-04 02:44 ==
LOC: DI 02:25
PROVIDERS: PCP Nurse Practitioner Family; Visit Provider Nurse Practitioner Family
DX: M23.221 Derangement of posterior horn of medial meniscus due to old tear or injury, right knee (principal)
CPT/HCPCS: 73721

== ENCOUNTER 2025-01-13 10:46 | Outpatient (CLI) | payer MEDICAID, SELFPAY ==
[2025-01-13 17:04] LABS: TSH 1.69 uIU/mL (0.36-3.74)
== END 2025-01-13 10:47 | disposition home or self-care (01) ==
LOC: LBO 02-11 10:46
PROVIDERS: PCP Student in an Organized Health Care Education/Training Program; Visit Provider Nurse Practitioner Women's Health
DX: R68.89 Other general symptoms and signs (principal); Z83.49 Family history of other endocrine, nutritional and metabolic diseases
CPT/HCPCS: 36415; 84439; 84443

== ENCOUNTER → 2025-02-20 05:49 | Outpatient (CLI) | payer MEDICAID, SELFPAY ==
--- NOTE | 2025-02-20 07:30 | DI.MAMMO_ITS ---
Exam(s) MAMMO SCREENING EXAM: MAMMO SCREENING CLINICAL HISTORY: screening, Z12.39 TECHNIQUE: Mammograms were interpreted according to the usual protocol including computer analysis with CAD system, tomosynthesis and C-view imaging. COMPARISON: 2019 and 2021 FINDINGS: The breasts are composed of heterogeneously dense fibroglandular densities, Breast Density category C. No suspicious masses or suspicious microcalcifications are seen. No skin thickening or abnormal axillary lymph nodes are seen. There has been no significant change from prior exams. IMPRESSION: BI-RADS Category 1, Negative mammogram. Yearly screening mammography is recommended. Breast Density: Category C - The breasts are heterogeneously dense, which may obscure small masses. Breast density Category C or D implies that the patient has dense breast tissue. Dense breast tissue can make it harder to find cancer on a mammogram. Dense breast tissue is also associated with an increased risk of breast cancer. This information about the result of the mammogram report was provided to the patient to raise their awareness. Use this report when you speak with the patient about their risks for breast cancer, which includes their family history. At that time, you may recommend additional screening tests (Ultrasound or MRI) as these tests may add significant information. A negative radiographic report should not delay biopsy if a dominant or clinically suspicious mass is present. Up to ten percent of cancers are not identified on mammography. A negative report may reinforce clinical impression. Adenosis and dense breasts may obscure an underlying neoplasm. False positive reports average 6 to 10%.
== END ==
LOC: DI 05:49
PROVIDERS: PCP Student in an Organized Health Care Education/Training Program; Visit Provider Nurse Practitioner Women's Health
DX: Z12.31 Encounter for screening mammogram for malignant neoplasm of breast (principal); R92.323 Mammographic fibroglandular density, bilateral breasts; R92.333 Mammographic heterogeneous density, bilateral breasts
CPT/HCPCS: 77063; 77067